=== PATIENT | female | born 1955 | race Caucasian/White ===

== ENCOUNTER → 2018-07-31 | Outpatient (CLI) | payer OTHER ==
--- NOTE | 2018-08-01 01:08 | REP ---
Clinical: Asthma with acute exacerbation. Technique: PA and lateral. Comparison: None. Findings: Trace basilar atelectasis cannot be excluded. No effusion. No pneumothorax. Mediastinum and cardiac silhouette are within normal limits. Skeletal structures are intact. Impression: Cannot exclude trace basilar atelectasis. Electronically Signed by Pavan Troncoso MD 08/01/2018 12:59 A
[2018-08-05 01:34] LABS: MYCOPLASMA PNEUMONIAE IgG 180 U/mL (0-99); MYCOPLASMA PNEUMONIAE IgM <770 U/mL (0-769)
== END ==
LOC: M SMT 15:10
PROVIDERS: ATTEND Physician Assistant
DX: J45.21 Mild intermittent asthma with (acute) exacerbation (principal)